=== PATIENT | male | born 1985 | race Caucasian/White ===

== ENCOUNTER 2017-11-03 18:08 | Inpatient (IN) | payer OTHER ==
[~2017-11-03] VITALS: Ht 172.7 cm; Wt 77.2 kg
[2017-11-03 19:06] LABS: APPEARANCE CLEAR ((CLEAR)); BILIRUBIN NEGATIVE; BLOOD SMALL; COLOR COLORLESS ((YELLOW)); GLUCOSE (STRIP) NEGATIVE; KETONES NEGATIVE; LEUKOCYTES NEGATIVE; NITRITE NEGATIVE; PROTEIN (STRIP) NEGATIVE; SPECIFIC GRAVITY 1.003 (1.000-1.030); UROBILINOGEN 0.2 MG/DL (0.2-1.0)
[2017-11-03 19:10] LABS: BACTERIA RARE /HPF; EPITHELIAL CELLS NONE SEEN /HPF; MUCUS NONE SEEN /LPF; RED BLOOD CELLS 0-5 /HPF (0-5); UCUL ADDED? NO; WHITE BLOOD CELLS 0-5 /HPF (0-5)
[2017-11-03 19:15] LABS: COCAINE NEGATIVE (150 ng/mL); PHENCYCLIDINE NEGATIVE (25 ng/mL); THC CANNABINOIDS NEGATIVE (50 ng/mL)
[2017-11-03 19:16] LABS: AMPHETAMINE NEGATIVE (500 ng/mL); BARBITURATES NEGATIVE (200 ng/mL); BENZODIAZEPINES NEGATIVE (150 ng/mL); BUPRENORPHINE NEGATIVE (10 ng/mL); METHADONE NEGATIVE (200 ng/mL); METHAMPHETAMINE NEGATIVE (500 ng/mL); OPIATES (MORPHINE) NEGATIVE (100 ng/mL); OXYCODONE NEGATIVE (100 ng/mL); PROPOXYPHENE NEGATIVE (300 ng/mL); TRICYCLIC ANTIDEPRESSANTS NEGATIVE (300 ng/mL)
[2017-11-03 19:26] LABS: HEMATOCRIT 41.6 % (38.0-50.0); MCHC 36.1 G/DL (30.0-36.0); MCV 88.7 FL (86-99); PLATELET COUNT 315 K/uL (156-360); RBC DIS.WIDTH-CV 12.1 % (11.8-14.6); RBC DIS.WIDTH-SD 39.6 % (39-53); RED BLOOD COUNT 4.69 M/uL (4.00-5.50); WHITE BLOOD COUNT 8.4 K/uL (4.1-10.2)
[2017-11-03 19:36] LABS: CHLORIDE 109 mEq/L (99-109); POTASSIUM 3.5 mEq/L (3.7-5.4); SODIUM 142 mEq/L (136-147)
[2017-11-03 19:38] LABS: GLUCOSE 121 mg/dL (70-99)
[2017-11-03 19:41] LABS: SERUM ETHYL ALCOHOL 270 mg/dL
[2017-11-03 19:44] LABS: UREA NITROGEN (BUN) 12 mg/dL (9-23)
[2017-11-03 19:45] LABS: ACETAMINOPHEN (TYLENOL) < 10 mcg/mL (10-30); SALICYLATE < 5.0 MG/DL (15-30)
[2017-11-03 19:47] LABS: GFR ESTIMATE (CALCULATED) > 59 mL/min/ (58.99-99999)
[2017-11-04] MEDS ORDERED: PROPRANOLOL HCL20 MG PO (05:51)
[2017-11-04] MEDS ORDERED: STRATTERA10 MG PO (05:53)
[2017-11-04] MEDS ORDERED: PROZAC40 MG PO (05:55)
[2017-11-04] MEDS ORDERED: PEN-VEE K,VEET500 MG PO (05:56)
[2017-11-04 07:50] VITALS: BP 140/90
[2017-11-04 16:04] VITALS: BP 131/69
[2017-11-05 08:00] VITALS: BP 113/69
[2017-11-05 10:24] VITALS: BP 141/93
[2017-11-05 16:58] VITALS: BP 127/89
[2017-11-06 08:33] VITALS: BP 110/73
[2017-11-06 16:39] VITALS: BP 137/89
[2017-11-07 08:00] VITALS: BP 114/70
[2017-11-07] MEDS ORDERED: EFFEXOR75 MG PO (08:13)
[2017-11-07] MEDS ORDERED: NALTREXONE HCL50 MG PO (08:14)
== END 2017-11-07 10:53 | disposition home or self-care (01) | DRG 881 ==
LOC: EME 18:08 → EDOF 11-04 04:04 → 1WEST 11-04 04:04 → ENRESERV 11-04 07:34 → 1WEST 11-04 07:35
PROVIDERS: Emergency Medicine
DX: F32.9 Major depressive disorder, single episode, unspecified (principal); F40.10 Social phobia, unspecified; F10.229 Alcohol dependence with intoxication, unspecified; T43.592A Poisoning by other antipsychotics and neuroleptics, intentional self-harm, initial encounter; T39.312A Poisoning by propionic acid derivatives, intentional self-harm, initial encounter; T43.212A Poisoning by selective serotonin and norepinephrine reuptake inhibitors, intentional self-harm, initial encounter; F17.200 Nicotine dependence, unspecified, uncomplicated; Z91.5 Personal history of self-harm
CPT/HCPCS: 80048; 81003; 85027; 90837; 93005; 97150 GO; 97165 GO; 99281; 99285; G0480; J7030; Q0177